=== PATIENT | female | born 1950 | race Hispanic/Latino ===

== ENCOUNTER 2016-08-03 10:19 | Emergency (ER) | payer OTHER ==
[~2016-08-03] VITALS: Ht 162.6 cm; Wt 55.8 kg
[~2016-08-03 10:19] MED LIST: CEPH500C20 PO; NEXIUM40 M1 PO; TRAZODONE150 MG PO
[2016-08-03 10:33] VITALS: TEMP 98.1
[2016-08-03 11:26] LABS: PLATELET COUNT 236 K/uL (152-353)
[2016-08-03 11:35] LABS: POTASSIUM 4.4 mmol/L (3.6-5.2); SODIUM 136 mmol/L (136-145)
[2016-08-03 12:20] VITALS: BP 161/89
== END 2016-08-03 12:27 | disposition home or self-care (01) ==
LOC: ED 10:19
PROVIDERS: Emergency Medicine
DX: R55 Syncope and collapse (principal)
CPT/HCPCS: 36415; 80053; 82550; 84484; 85027; 93005; 99283

== ENCOUNTER → 2019-03-29 10:07 | Outpatient (CLI) | payer OTHER | END | disposition home or self-care (01) | LOC: AMB 10:07 | DX: Z04.1 Encounter for examination and observation following transport accident (principal) ==

== ENCOUNTER → 2020-08-18 | Outpatient (CLI) | payer OTHER | LOC: INF 17:17 | PROVIDERS: ATTEND Internal Medicine | DX: Z23 Encounter for immunization (principal) | CPT/HCPCS: 96372 ==

== ENCOUNTER 2020-09-11 08:04 | Outpatient (CLI) | payer OTHER | END 2020-09-11 23:59 | disposition home or self-care (01) | LOC: INF 08:04 | PROVIDERS: ATTEND Internal Medicine | DX: Z23 Encounter for immunization (principal) | CPT/HCPCS: 96372 ==